=== PATIENT | male | born 1970 | race Two or more races ===

== ENCOUNTER 2018-10-03 15:42 | Emergency (ER) | payer SELFPAY ==
[~2018-10-03] VITALS: Ht 167.6 cm; Wt 70.0 kg
[2018-10-03] MEDS ORDERED: SODIUM CHLORIDE 0.9% 1,000 ML IV ONE ×2 (16:48→18:32)
[2018-10-03] MEDS ORDERED: BACITRACIN ZINC OINT UDPKT TOP ONE (17:00)
[2018-10-03] MEDS ORDERED: TETANUS, DIPHTHERIA, PERTUSSIS VAC/PF 0.5ML (>7YR OLD) IM ONE (17:00)
[2018-10-03 17:43] LABS: BASOPHILS % 0.3 % (0.0-2.0); HEMATOCRIT. 37.9 % (42.0-52.0); HEMOGLOBIN. 12.6 g/dL (14.0-18.0); LYMPHOCYTES % 34.7 % (20.0-50.0); MEAN CORPUSCULAR HEMOGLOBIN 32.5 pg (28.0-32.0); MEAN CORPUSCULAR VOLUME 97.8 fL (80.0-94.0); MEAN PLATELET VOLUME 9.1 fl (7.4-10.4); MONOCYTES % 11.6 % (2.0-8.0); NEUTROPHILS % 52.4 % (40.0-76.0); PLATELET 114 x1000/uL (130-400); RED BLOOD CELL COUNT 3.88 mill/uL (4.7-6.1); RED CELL DISTRIBUTION WIDTH 14.2 % (11.6-14.6)
[2018-10-03 17:49] LABS: CHLORIDE 101 mEq/L (98-107)
[2018-10-03 18:25] LABS: ETHANOL BLOOD 445 mg/dL
[2018-10-04 06:00] VITALS: BP 139/94
== END 2018-10-04 06:02 | disposition home or self-care (01) ==
LOC: ER 15:42
DX: S00.81XA Abrasion of other part of head, initial encounter (principal); S00.31XA Abrasion of nose, initial encounter; M47.892 Other spondylosis, cervical region; F10.129 Alcohol abuse with intoxication, unspecified; Y90.8 Blood alcohol level of 240 mg/100 ml or more; X58.XXXA Exposure to other specified factors, initial encounter; Y93.89 Activity, other specified; Y92.89 Other specified places as the place of occurrence of the external cause
CPT/HCPCS: 36415; 70450; 70486; 72125; 80053; 80307; 80329; 85025; 90471; 90715; 99284; G0482; J7030